=== PATIENT | female | born 1950 | race Caucasian/White ===

== ENCOUNTER 2020-09-09 17:53 | Emergency (ER) | payer MEDICARE ==
[~2020-09-09] VITALS: Ht 160 cm; Wt 64.3 kg
[2020-09-09 18:25] LABS: HEMATOCRIT 36.9 % (37.0-47.0); HEMOGLOBIN 11.6 gm/dL (12.0-15.0); MCH 27.3 pg (26.0-34.0); MCHC 31.5 g/dL (28.0-37.0); MCV 86.5 fL (80.0-100.0); NUCLEATED RBCS 0 /100WBC; PLATELET COUNT* 214 thou/uL (150-400); RBC 4.26 mil/uL (4.20-5.00); RDW-CV 16.4 % (10.5-14.5)
[2020-09-09 18:32] LABS: CREATININE 2.1 mg/dL (0.6-1.3)
[2020-09-09 18:37] LABS: ALBUMIN 2.5 g/dL (3.4-5.0); TOTAL PROTEIN 5.2 g/dL (6.4-8.2)
[2020-09-09 18:41] LABS: POTASSIUM 2.7 mmol/L (3.5-5.1)
[2020-09-09 19:09] LABS: ABSOLUTE MONOCYTES 0.2 thou/uL (0.0-1.2); ABSOLUTE NEUTROPHILS 19.8 thou/uL (1.6-8.1); PLATELET ESTIMATE ADEQUATE
[2020-09-09 21:00] LABS: URINE BLOOD TRACE (Negative); URINE CLARITY CLEAR; URINE COLOR DARK YELLOW; URINE GLUCOSE-RANDOM TRACE (Negative); URINE KETONES TRACE (Negative); URINE LEUKOCYTES-REFLEX TRACE (Negative); URINE NITRITE-REFLEX NEGATIVE (Negative); URINE PROTEIN 1+ (Negative)
[2020-09-09 21:06] LABS: URINE BILIRUBIN 2+ (Negative)
[2020-09-09 21:08] LABS: ICTOTEST (BILI CONFIRMATORY) Positive (Negative)
[2020-09-09 21:19] LABS: SQUAMOUS 4-10 Moderate /LPF (0-3)
[2020-09-09 21:20] LABS: HYALINE CASTS 4-10 Moderate /LPF (None Seen); MUCUS 4-6 Moderate strn/LPF (None Seen)
[2020-09-09 21:22] LABS: BACTERIA-REFLEX >30 Many /HPF (None Seen); CRYSTALS None Seen /LPF (None Seen); URINE RBC 0-2 Rare /HPF (0-2); WBC CASTS 0-3 /LPF
[2020-09-09 21:23] LABS: FINE GRANULAR CASTS 0-3 Few /LPF (None Seen); WBC CLUMPS Few (None Seen)
[2020-09-10 00:12] VITALS: BP 102/57
--- NOTE | 2020-09-10 09:32 | EKG ---
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: [facility] : 1950 Requested By: Juve Lawler Order Number: [id number] MD: John Black Measurements Intervals [place] Rate: 97 P: 10 [place]: 166 QRS: -42 QRSD: 104 T: 102 QT: 348 QTc: 442 Interpretive Statements Sinus rhythm Left anterior fascicular block Abnormal R-wave progression, late transition Nonspecific ST segment abnormality no previous ECG available for comparison Electronically Signed On 09-10-2020 9:31:48 SUPERVISOR REFINING by John Black [email or web address] <ELECTRONICALLY SIGNED> By: John Black MD, FACC 09/10/20 0931 1805 1805 John Black MD, [facility] /EPI
== END 2020-09-10 00:14 | disposition short-term general hospital (02) ==
LOC: M.ERS 17:53
PROVIDERS: Emergency Medicine Emergency Medical Services
DX: A41.9 Sepsis, unspecified organism (principal); R65.21 Severe sepsis with septic shock; N28.9 Disorder of kidney and ureter, unspecified; N39.0 Urinary tract infection, site not specified; R11.2 Nausea with vomiting, unspecified; R06.02 Shortness of breath; I10 Essential (primary) hypertension; Z20.822 Contact with and (suspected) exposure to COVID-19; Z88.5 Allergy status to narcotic agent; Z89.512 Acquired absence of left leg below knee; Z94.0 Kidney transplant status; Z88.0 Allergy status to penicillin; Z88.6 Allergy status to analgesic agent; Z88.7 Allergy status to serum and vaccine

== ENCOUNTER 2021-07-29 18:32 | Inpatient (IN) | payer MEDICARE ==
[~2021-07-29] VITALS: Ht 162.6 cm; Wt 70.3 kg
[2021-07-29 18:59] VITALS: BP 134/70
[2021-07-29] MEDS ORDERED: NORVASC10 MG PO (19:04)
[2021-07-29] MEDS ORDERED: CELLCEPT500 MG PO (19:05)
[2021-07-29] MEDS ORDERED: SLOW FE142 MG PO (19:06)
[2021-07-29] MEDS ORDERED: KLOR-CON 1010 MEQ PO (19:06)
[2021-07-29] MEDS ORDERED: GENGRAF100 MG PO (19:06)
[2021-07-29] MEDS ORDERED: PROTONIX40 M2 PO (19:06)
[2021-07-29] MEDS ORDERED: WARFARIN SODIUM2 MG PO (19:07)
[2021-07-29] MEDS ORDERED: RAYOS5 MG PO (19:07)
[2021-07-29 21:59] LABS: URINE BLOOD 2+ (Negative); URINE CLARITY CLEAR; URINE COLOR YELLOW; URINE GLUCOSE-RANDOM NEGATIVE (Negative); URINE KETONES TRACE (Negative); URINE LEUKOCYTES-REFLEX 1+ (Negative); URINE NITRITE-REFLEX NEGATIVE (Negative); URINE PROTEIN NEGATIVE (Negative); URINE SPECIFIC GRAVITY 1.025 (1.005-1.030); URINE UROBILINOGEN 0.2 E.U./dl (0.2-1.0)
[2021-07-29 22:13] LABS: URINE BILIRUBIN 1+ (Negative)
[2021-07-29 22:14] LABS: ICTOTEST (BILI CONFIRMATORY) Negative (Negative)
[2021-07-29 22:17] LABS: HEMATOCRIT 43.6 % (37.0-47.0); MCH 28.7 pg (26.0-34.0); MCHC 32.2 g/dL (28.0-37.0); MCV 89.1 fL (80.0-100.0); MPV 9.5 fl. (7.2-11.1); NUCLEATED RBCS 0 /100WBC; PLATELET COUNT* 193 thou/uL (150-400); RDW-CV 15.5 % (10.5-14.5); WBC 11.3 thou/uL (4.0-11.0)
[2021-07-29 22:24] LABS: BACTERIA-REFLEX 1-9 Few /HPF (None Seen); HYALINE CASTS 4-10 Moderate /LPF (None Seen); MUCUS None Seen strn/LPF (None Seen); SQUAMOUS 4-10 Moderate /LPF (0-3); URINE WBC-REFLEX 6-15 Few /HPF (0-5)
[2021-07-29 22:25] LABS: CRYSTALS None Seen /LPF (None Seen); URINE RBC 0-2 Rare /HPF (0-2)
[2021-07-29 22:38] LABS: CREATININE 2.4 mg/dL (0.6-1.3); POTASSIUM 3.7 mmol/L (3.5-5.1)
[2021-07-29 22:42] LABS: ALBUMIN 3.3 g/dL (3.4-5.0); MAGNESIUM 1.9 mg/dL (1.8-2.4); TOTAL BILIRUBIN 0.9 mg/dL (<0.1-1.0); TOTAL PROTEIN 6.2 g/dL (6.4-8.2)
[2021-07-29 22:50] LABS: ABSOLUTE LYMPHOCYTES 1.7 thou/uL (0.8-5.3); ABSOLUTE MONOCYTES 0.7 thou/uL (0.0-1.2); ABSOLUTE NEUTROPHILS 8.9 thou/uL (1.6-8.1)
[2021-07-29 22:54] LABS: PLATELET ESTIMATE ADEQUATE
[2021-07-30 03:31] VITALS: BP 113/55
[2021-07-30 07:13] VITALS: BP 149/83
--- NOTE | 2021-07-30 09:51 | EKG ---
[place] [address] ELECTROCARDIOGRAM REPORT Name: TIFFANIE SHIPMAN Room: [place] [address] ADM IN [facility]#: [id number] Admission: 07/29/21 Attend Phys: Andriy Marr Discharge: Date of : 54 Date of Service: 07/29/212133 Report #: [id number] THIS REPORT FOR: //name// [facility] ED Test Date: 2021-07-29 Test Time: 21:34:55 Pat Name: TIFFANIE SHIPMAN Department: Room: [facility] Gender: F Hr Analyst: LEE ANN : 1950 Requested By: Francia Valderrama Order Number: [id number] MD: Riley Romero Measurements Intervals [place] Rate: 93 P: -1 [place]: 157 QRS: -38 QRSD: 180 T: 118 QT: 412 QTc: 513 Interpretive Statements Sinus rhythm Left bundle branch block Nonspecific ST-T alteration Since the prior tracing, complete left lateral branch block is noted and nonspecific ST-T alterations have occurred Electronically Signed On 07-30-2021 9:50:44 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
[2021-07-30 11:13] VITALS: BP 104/66
--- NOTE | 2021-07-30 11:30 | NUR ---
GAVE UPDATE TO PT'S DAUGHTER AND .
--- NOTE | 2021-07-30 13:03 | 2DMMODE ---
[place] [address] 2 D/M-MODE ECHOCARDIOGRAM Name: TIFFANIE SHIPMAN Room: [address] IN [facility]#: [id number] Admission: 07/29/21 Attend Phys: Andriy Marr Discharge: Date of : 54 Date of Service: 07/30/21 1303 Report #: [id number] THIS REPORT FOR: cc: Jamar Lin MD, Matthew W. MD Holkins, John M. MD [facility] ~ APPROVED REPORT Study performed: 07/30/2021 10:25:27 EXAM: Comprehensive 2D, Doppler, and color-flow Echocardiogram Patient Location: In-Patient Room #: er Status: routine BSA: 1.76 HR: 81 bpm BP: 113/55 mmHg Rhythm: NSR Other Information Study Quality: Good Indications Abnormal ECG 2D Dimensions IVSd: 19.96 (7-11mm) LVOT Diam: 19.19 (18-24mm) LVDd: 38.40 mm PWd: 13.80 (7-11mm) Ascending Ao: 31.19 (22-36mm) LVDs: 26.92 (25-40mm) Aortic Root: 30.59 mm Volumes Left Atrial Volume (Systole) LA ESV Index: 18.30 mL/m2 Aortic Valve AoV Peak Claude.: 3.31 m/s AO Peak Gr.: 43.88 mmHg LVOT Max P.31 mmHg AO Mean Gr.: 24.20 mmHg LVOT Mean P.42 mmHg LVOT Max V: 1.68 m/s AO V2 VTI: 48.56 cm LVOT Mean V: 1.07 m/s ALDAIR (VTI): 1.70 cm2 LVOT V1 VTI: 28.52 [place] [address] 2 D/M-MODE ECHOCARDIOGRAM Name: TIFFANIE SHIPMAN Room: [address]#: [id number] Admission: 07/29/21 Attend Phys: Andriy Marr Discharge: Date of : 54 Date of Service: 07/30/21 1303 Report #: [id number] Mitral Valve MV Mean Gr.: 2.99 mmHg E/A Ratio: 0.53 MV Decel. Time: 145.10 ms MV E Max Claude.: 0.65 m/s MV PHT: 42.08 ms MVA (PHT): 5.23 cm2 TDI E/Lateral E': 10.83 E/Medial E': 10.83 Medial E' Claude.: 0.06 m/s Lateral E' Claude.: 0.06 m/s Pulmonary Valve PV Peak Claude.: 1.86 m/s PV Peak Gr.: 13.90 mmHg Tricuspid Valve RAP Estimate: 5.00 mmHg TR Peak Gr.: 20.01 mmHg RVSP: 25.00 mmHg PA Pressure: 25.00 mmHg Left Ventricle The left ventricle is normal size. There is normal LV segmental wall motion. Mild concentric left ventricular hypertrophy. Left ventricular systolic function is normal. The left ventricular ejection fraction is within the normal range. LVEF is 60%. Grade I - abnormal relaxation pattern. Right Ventricle The right ventricle is normal size. The right ventricular systolic function is normal. Atria The left atrium size is normal. The right atrium size is normal. Aortic Valve Mild aortic valve sclerosis. No aortic regurgitation is present. Mild to moderate aortic stenosis. Mitral Valve There is mitral annular calcification. Trace mitral regurgitation. No evidence of mitral valve stenosis. Tricuspid Valve The tricuspid valve is normal in structure. Trace tricuspid regurgitation. [place] [address] 2 D/M-MODE ECHOCARDIOGRAM Name: RAMONITATIFFANIE Room: [address]#: [id number] Admission: 07/29/21 Attend Phys: Andriy Marr Discharge: Date of : 54 Date of Service: 07/30/21 1303 Report #: [id number] Pulmonic Valve The pulmonary valve is normal in structure. There is no pulmonic valvular regurgitation. Great Vessels The aortic root is normal in size. IVC is normal in size and collapses >50% with inspiration. Pericardium There is no pericardial effusion. <Conclusion> The left ventricle is normal size. Mild concentric left ventricular hypertrophy. Left ventricular systolic function is normal. The left ventricular ejection fraction is within the normal range. LVEF is 60%. Grade I - abnormal relaxation pattern. The right ventricle is normal size. The left atrium size is normal. Mild aortic valve sclerosis. No aortic regurgitation is present. Mild to moderate aortic stenosis. There is mitral annular calcification. Trace mitral regurgitation. No evidence of mitral valve stenosis. The tricuspid valve is normal in structure. IVC is normal in size and collapses >50% with inspiration. There is no pericardial effusion. There is normal LV segmental wall motion. <ELECTRONICALLY SIGNED> By: Riley Romero MD, FACC 07/30/21 1303 130 130 Riley Romero MD, FACC /INF
[2021-07-30 15:13] VITALS: BP 93/64
[2021-07-30 19:11] VITALS: BP 112/64
[2021-07-30 20:05] VITALS: BP 117/68
[2021-07-30] MEDS ORDERED: GENGRAF25 MG PO (20:12)
[2021-07-30] MEDS ORDERED: SLOW FE142 MG PO (20:14)
[2021-07-30] MEDS ORDERED: MYCOPHENOLATE500 MG PO (20:15)
[2021-07-30] MEDS ORDERED: WARFARIN SODIUM1 GM PO (20:21)
[2021-07-30] MEDS ORDERED: JANTOVEN1 MG PO (20:24)
[2021-07-31 01:12] VITALS: BP 128/69
[2021-07-31 04:24] LABS: ABSOLUTE MONOCYTES 0.5 thou/uL (0.0-1.2); ABSOLUTE NEUTROPHILS 2.3 thou/uL (1.6-8.1); BASOPHILS 0.6 %; EOSINOPHILS 1.3 %; HEMATOCRIT 35.4 % (37.0-47.0); LYMPHOCYTES 26.2 %; MCH 28.8 pg (26.0-34.0); MCHC 32.8 g/dL (28.0-37.0); MCV 87.9 fL (80.0-100.0); MONOCYTES 12.3 %; MPV 9.5 fl. (7.2-11.1); NUCLEATED RBCS 0 /100WBC; PLATELET COUNT* 149 thou/uL (150-400); POLYS 59.6 %; RBC 4.03 mil/uL (4.20-5.00); RDW-CV 15.5 % (10.5-14.5); WBC 3.9 thou/uL (4.0-11.0)
[2021-07-31 04:36] LABS: INR 1.5; PROTIME 14.9 Seconds (9.20-11.50)
[2021-07-31 04:49] LABS: ALBUMIN 2.3 g/dL (3.4-5.0); CALCIUM 8.3 mg/dL (8.5-10.1); CREATININE 1.7 mg/dL (0.6-1.3); MAGNESIUM 1.8 mg/dL (1.8-2.4); POTASSIUM 3.5 mmol/L (3.5-5.1); TOTAL BILIRUBIN 0.4 mg/dL (<0.1-1.0); TOTAL PROTEIN 5.1 g/dL (6.4-8.2)
[2021-07-31 04:50] LABS: HEMOGLOBIN 11.6 gm/dL (12.0-15.0)
[2021-07-31 05:08] VITALS: BP 118/60
[2021-07-31 08:50] VITALS: BP 130/61
[2021-07-31 12:27] VITALS: BP 131/74
[2021-07-31 16:33] VITALS: BP 157/99
--- NOTE | 2021-07-31 17:20 | NUR ---
CM ASSESSMENT ASSESSMENT COMPLETED WITH PT VIA PHONE. PT LIVES ON GROUND LEVEL OF HOME WITH FAMILY. PT SEEKING TO RETURN HOME AT [place]. PT USES A WHEELCHAIR. PT IND WITH ADLS. PT HAD SNF AND HH SERVICES IN [place] AFTER LEG AMPUTATION. PT DAUGHTER IS DPOA (JOSE MARIA GREENWOOD [phone]). CM TO FOLLOW.
[2021-07-31 20:00] VITALS: BP 135/79
[2021-08-01] VITALS: BP 133/77
[2021-08-01 04:00] VITALS: BP 152/99
[2021-08-01 04:20] LABS: ABSOLUTE LYMPHOCYTES 0.4 thou/uL (0.8-5.3); ABSOLUTE MONOCYTES 0.1 thou/uL (0.0-1.2); ABSOLUTE NEUTROPHILS 1.8 thou/uL (1.6-8.1); BASOPHILS 0.2 %; HEMATOCRIT 35.8 % (37.0-47.0); HEMOGLOBIN 11.9 gm/dL (12.0-15.0); LYMPHOCYTES 15.5 %; MCHC 33.3 g/dL (28.0-37.0); MONOCYTES 6.3 %; MPV 9.5 fl. (7.2-11.1); NUCLEATED RBCS 0 /100WBC; PLATELET COUNT* 141 thou/uL (150-400); RBC 4.12 mil/uL (4.20-5.00); RDW-CV 15.2 % (10.5-14.5); WBC 2.3 thou/uL (4.0-11.0)
[2021-08-01 04:25] LABS: INR 1.9; PROTIME 18.8 Seconds (9.20-11.50)
[2021-08-01 04:26] LABS: CALCIUM 8.4 mg/dL (8.5-10.1); CREATININE 1.4 mg/dL (0.6-1.3); POTASSIUM 4.2 mmol/L (3.5-5.1)
[2021-08-01 08:00] VITALS: BP 158/75
[2021-08-01 12:21] VITALS: BP 134/76
[2021-08-01 16:00] VITALS: BP 141/84
--- NOTE | 2021-08-01 17:11 | NUR ---
CM FOLLOWUP PT NOT MED CLEAR AND EXPERIENCING LOW WBC. NO CM DC NEEDS AT THIS TIME. UPON DC, PT TO RETURN TO HOME SHARED WITH FAMILY.
[2021-08-01 17:35] LABS: ABSOLUTE LYMPHOCYTES 0.3 thou/uL (0.8-5.3); ABSOLUTE MONOCYTES 0.1 thou/uL (0.0-1.2); ABSOLUTE NEUTROPHILS 3.8 thou/uL (1.6-8.1); BASOPHILS 0.3 %; HEMATOCRIT 35.8 % (37.0-47.0); HEMOGLOBIN 11.6 gm/dL (12.0-15.0); LYMPHOCYTES 6.8 %; MCH 28.5 pg (26.0-34.0); MCHC 32.4 g/dL (28.0-37.0); MONOCYTES 3.3 %; MPV 9.4 fl. (7.2-11.1); NUCLEATED RBCS 0 /100WBC; PLATELET COUNT* 146 thou/uL (150-400); POLYS 89.6 %; RBC 4.07 mil/uL (4.20-5.00); RDW-CV 15.1 % (10.5-14.5); WBC 4.2 thou/uL (4.0-11.0)
[2021-08-01 20:00] VITALS: BP 138/80
[2021-08-02] VITALS: BP 153/80
[2021-08-02 04:00] VITALS: BP 150/75
[2021-08-02 06:47] LABS: PROTIME 29.6 Seconds (9.20-11.50)
[2021-08-02 06:51] LABS: CALCIUM 8.8 mg/dL (8.5-10.1); CREATININE 1.3 mg/dL (0.6-1.3); MAGNESIUM 1.6 mg/dL (1.8-2.4); PHOSPHORUS* 2.8 mg/dL (2.5-4.9); POTASSIUM 4.1 mmol/L (3.5-5.1)
[2021-08-02 08:00] VITALS: BP 165/101
[2021-08-02] MEDS ORDERED: DECADRON6 MG PO (08:22)
[2021-08-02] MEDS ORDERED: CEFDINIR300 MG PO (08:22)
[2021-08-02 12:40] VITALS: BP 139/66
[2021-08-02 13:23] VITALS: BP 139/66
== END 2021-08-02 18:06 | disposition home or self-care (01) | DRG 871 ==
LOC: M.ERS 18:32 → M.TBA-ER 23:13 → M.ORTHSURG 07-30 19:23
PROVIDERS: Emergency Medicine; Internal Medicine; Internal Medicine Nephrology; Nurse Practitioner Family; ADMIT Internal Medicine; ATTEND Internal Medicine
PROC: XW033E5 Introduction of Remdesivir Anti-infective into Peripheral Vein, Percutaneous Approach, New Technology Group 5 (ICD-10-PCS; principal; 2021-08-02)
DX: A41.89 Other specified sepsis (principal); U07.1 COVID-19; J96.01 Acute respiratory failure with hypoxia; N17.0 Acute kidney failure with tubular necrosis; I21.A1 Myocardial infarction type 2; J12.82 Pneumonia due to coronavirus disease 2019; E87.2 Acidosis; N30.00 Acute cystitis without hematuria; D84.9 Immunodeficiency, unspecified; Z94.0 Kidney transplant status; I95.9 Hypotension, unspecified; I12.9 Hypertensive chronic kidney disease with stage 1 through stage 4 chronic kidney disease, or unspecified chronic kidney disease; I44.7 Left bundle-branch block, unspecified; N18.9 Chronic kidney disease, unspecified; Z95.2 Presence of prosthetic heart valve; Z89.512 Acquired absence of left leg below knee; Z88.6 Allergy status to analgesic agent; Z88.0 Allergy status to penicillin; Z82.49 Family history of ischemic heart disease and other diseases of the circulatory system